=== PATIENT | female | born 2000 | race Hispanic/Latino ===

== ENCOUNTER 2020-06-24 11:24 | Emergency (ER) | payer SELFPAY ==
[2020-06-24] MEDS ORDERED: SODIUM CHLORIDE 0.9% 1000ML 1,000 ML IV ONE (12:08)
[2020-06-24 12:43] LABS: BASOPHILS % (AUTO) 0.5 % (0.0-5.0); EOSINOPHILS % (AUTO) 0.8 % (0.0-8.0); HEMATOCRIT 38.1 % (36-48); MEAN CORPUSCULAR HEMOGLOBIN 29.6 pg (27.0-33.0); MEAN CORPUSCULAR HGB CONC 33.1 g/dL (32.0-36.0); MEAN CORPUSCULAR VOLUME 89.6 fL (80-100); MONOCYTES % (AUTO) 2.8 % (3.0-13.0); NEUTROPHILS % (AUTO) 82.5 % (40.0-77.0); PLATELET COUNT (AUTO) 337 K/uL (130-400); RED BLOOD CELL COUNT(AUTO) 4.25 MIL/uL (4.00-5.50); RED CELL DISTRIBUTION WIDTH 12.2 % (11.0-15.5); WHITE BLOOD COUNT (AUTO) 13.1 K/uL (4.8-10.8)
[2020-06-24 13:03] LABS: CREATININE 0.7 mg/dL (0.5-1.5); POTASSIUM 3.5 mmol/L (3.5-5.1)
[2020-06-24 13:08] LABS: ALBUMIN 3.8 g/dL (3.5-5.0); BILIRUBIN,TOTAL 0.2 mg/dL (0.2-1.0); TOTAL PROTEIN, SERUM 8.4 g/dL (6.0-8.3)
[2020-06-24] MEDS ORDERED: IOHEXOL-350 75 ML VIAL IV ONE (14:01)
== END 2020-06-24 15:45 | disposition home or self-care (01) ==
LOC: EDH 11:24
DX: R10.9 Unspecified abdominal pain (principal); J45.909 Unspecified asthma, uncomplicated
CPT/HCPCS: 36415; 74177; 80053; 81025; 85025; 96360; 96361; 99285; J7030; Q9967

== ENCOUNTER 2024-06-25 08:13 | Emergency (ER) | payer BC ==
[~2024-06-25] VITALS: Ht 154.9 cm; Wt 46.7 kg
[~2024-06-25 08:13] MED LIST: IBUP-2077 PO; MACR100 PO
[2024-06-25 09:01] LABS: RAPID GROUP A STREP negative (NEGATIVE)
[2024-06-25 09:11] LABS: COVID19 (SARS ANTIGEN RAPID) PRESUMPTIVE NEGATIVE (NEGATIVE); INFLUENZA TYPE A Negative For Type A (NEGATIVE); INFLUENZA TYPE B Negative For Type B (NEGATIVE)
[2024-06-25 09:27] VITALS: BP 105/59; PULSE 74; RESP 14; TEMP 98.2; O2SAT 99
[2024-06-25] MEDS ORDERED: ALBUHFA IH (09:29)
[2024-06-25] MEDS ORDERED: AZIT250T9 PO (09:29)
[2024-06-25] MEDS: dexaMETHasone SOD PHOSPHATE 4 MG/ML 1ML VIAL IM STA (09:30)
== END 2024-06-25 09:47 | disposition home or self-care (01) ==
LOC: EDH 08:13
DX: J06.9 Acute upper respiratory infection, unspecified (principal); J45.909 Unspecified asthma, uncomplicated; Z20.822 Contact with and (suspected) exposure to COVID-19; Z79.899 Other long term (current) drug therapy; Z98.890 Other specified postprocedural states
CPT/HCPCS: 99284; 87426; 87880; 87804 ×2; 96372; J1100